=== PATIENT | female | born 1945 | race Caucasian/White ===

== ENCOUNTER 2020-11-08 00:07 | Inpatient (IN) | payer MEDICARE, OTHER ==
[~2020-11-08] VITALS: Ht 162.6 cm; Wt 67.5 kg
[2020-11-08 03:21] LABS: Eosinophils # (auto) 0.1 10 ^3/uL (0-0.8); Lymphocytes # (auto) 2.2 10 ^3/uL (0.4-5.4); Red Cell Distribution Width 14.4 % (11.8-14.3)
[2020-11-08 03:23] LABS: Basophils # (auto) 0.2 10 ^3/uL (0-0.2); Basophils % (auto) 1.8 % (0.0-2.0); Eosinophils % (auto) 1.1 % (0.0-7.0); Hematocrit 37.4 % (36.0-46.0); Lymphocytes % (auto) 20.8 % (10.0-50.0); Mean Corpuscular Hemoglobin 35.6 pg (28.0-32.0); Mean Corpuscular Hgb Conc. 34.8 g/dL (32.0-36.0); Mean Corpuscular Volume 102.2 fL (80.0-100.0); Monocytes # (auto) 0.5 10 ^3/uL (0-1.3); Monocytes % (auto) 4.7 % (0.0-12.0); Neutrophils # (auto) 7.5 10 ^3/uL (1.6-8.6); Neutrophils % (auto) 71.6 % (37.0-80.0); Platelet Count (auto) 175 10^3/uL (140-450); Red Blood Cells 3.66 10^6/uL (4.0-5.20); White Blood Cell 10.5 10^3/uL (4.4-10.8)
[2020-11-08 03:25] LABS: INR 0.91 (0.9-1.15)
[2020-11-08 03:27] LABS: Alanine Aminotransferase 40 U/L (13-56); Albumin 3.7 g/dL (3.4-5.0); Anion Gap 7 (5-15); Aspartate Aminotransferase 31 U/L (15-37); BUN/Creatinine Ratio 27.4; Blood Urea Nitrogen 29 mg/dL (7-18); Calcium 9.6 mg/dL (8.5-10.1); Carbon Dioxide 28 mmol/L (21-32); Chloride 100 mmol/L (98-107); GFR African American 65 mL/min; GFR Non-African American 54 mL/min; Glucose 262 mg/dL (74-106); Magnesium 2.2 mg/dL (1.6-2.6); Sodium 135 mmol/L (136-145)
[2020-11-08 03:32] LABS: Alkaline Phosphatase 90 U/L (45-117); Bilirubin, Total 0.5 mg/dL (0.2-1.0)
[2020-11-08] MEDS ORDERED: SODIUM CHLORIDE 0.9% 500 ML IV ONE (04:30)
[2020-11-08] MEDS ORDERED: ACETAMINOPHEN 325 MG TAB PO PRN (07:00)
[2020-11-08] MEDS ORDERED: NITROGLYCERIN 0.4 MG SL TAB SL PRN (07:00)
[2020-11-08] MEDS ORDERED: DEXTROSE (50%) 50ML SYRG IV PRN (07:00)
[2020-11-08] MEDS ORDERED: MORPHINE SULF INJ 2 MG/ML SYRINGE 1ML IV PRN (07:00)
[2020-11-08] MEDS ORDERED: TEMAZEPAM 15 MG CAP PO PRN (07:00)
[2020-11-08 07:52] LABS: Alcohol, Urine < 3.0 mg/dL (0-10); Amphetamine Screen, Urine NEGATIVE (NEGATIVE); Barbiturate Scree,Urine NEGATIVE (NEGATIVE); Benzodiazephine Screen, Urine NEGATIVE (NEGATIVE); Cannabinoid Screen, Urine NEGATIVE (NEGATIVE); Cocaine Screen, Urine NEGATIVE (NEGATIVE); Opiate Scree,Urine NEGATIVE (NEGATIVE); Phencyclidine Screen, Urine NEGATIVE (NEGATIVE)
[2020-11-08] MEDS ORDERED: cefTRIAXone 1GM/50ML D5W 50 ML IV SCH (09:00)
[2020-11-08] MEDS: InsuLIN REG 1unit/0.01ml Soln (100units/ml) SC SCH ×3 (09:40→21:17)
[2020-11-08] MEDS: ACCU-CHEK COMFORT CURVE STRIP VI SCH ×3 (09:41→21:15)
[2020-11-08] MEDS ORDERED: TRIAMTERENE/HCTZ 37.5/25 MG CAP/TAB PO SCH (10:00)
[2020-11-08] MEDS: PANTOPRAZOLE 40 MG TAB PO SCH (10:08)
[2020-11-08 10:38] LABS: Urine Bacteria FEW /hpf (None Seen); Urine Blood Negative /uL (Negative); Urine WBC 2 /hpf (0 - 5)
[2020-11-08 16:42] VITALS: BP 101/63
[2020-11-08 17:03] VITALS: BP 104/63
[2020-11-08] MEDS ORDERED: METF-370 PO (17:23)
[2020-11-08] MEDS ORDERED: GLIM4TAB42 PO (17:23)
[2020-11-08] MEDS ORDERED: TOFA1TAB PO (17:23)
[2020-11-08] MEDS ORDERED: OMEP20TA PO (17:23)
[2020-11-08] MEDS ORDERED: LISI40TA11 PO (17:23)
[2020-11-08] MEDS ORDERED: SOTA80TA PO (17:23)
[2020-11-08] MEDS ORDERED: CYCL10TA6 PO (17:23)
[2020-11-08] MEDS ORDERED: GABA300C10 PO (17:23)
[2020-11-08] MEDS ORDERED: ATO40T PO (17:23)
[2020-11-08] MEDS ORDERED: ASCO500T11 PO (17:23)
[2020-11-08] MEDS ORDERED: SITA100T7 PO (17:23)
[2020-11-08] MEDS ORDERED: MAGN400T40 PO (17:23)
[2020-11-08] MEDS ORDERED: CHOL20007 PO (17:23)
[2020-11-08] MEDS: ATORVASTATIN 20 MG TAB PO SCH (21:15)
[2020-11-08] MEDS: SODIUM CHLORIDE 0.9% 1,000 ML IV SCH (21:16)
[2020-11-08 22:00] VITALS: BP 131/75
[2020-11-09 05:00] VITALS: BP 139/84
[2020-11-09] MEDS: ACCU-CHEK COMFORT CURVE STRIP VI SCH ×4 (06:12→21:36)
[2020-11-09] MEDS: InsuLIN REG 1unit/0.01ml Soln (100units/ml) SC SCH ×4 (06:12→21:51)
[2020-11-09 07:38] LABS: Basophils # (auto) 0 10 ^3/uL (0-0.2); Basophils % (auto) 0.5 % (0.0-2.0); Eosinophils # (auto) 0.1 10 ^3/uL (0-0.8); Hemoglobin 13.1 g/dL (12.2-16.2); Monocytes # (auto) 0.5 10 ^3/uL (0-1.3); Monocytes % (auto) 6.2 % (0.0-12.0); Nucleated Red Blood Cells % 0.1 %; Platelet Count (auto) 148 10^3/uL (140-450); Red Cell Distribution Width 13.9 % (11.8-14.3)
[2020-11-09 07:40] LABS: Eosinophils % (auto) 0.9 % (0.0-7.0); Hematocrit 37.4 % (36.0-46.0); Lymphocytes # (auto) 1.4 10 ^3/uL (0.4-5.4); Lymphocytes % (auto) 18.5 % (10.0-50.0); Mean Corpuscular Hemoglobin 35.5 pg (28.0-32.0); Mean Corpuscular Volume 101.6 fL (80.0-100.0); Neutrophils # (auto) 5.6 10 ^3/uL (1.6-8.6); Neutrophils % (auto) 73.9 % (37.0-80.0); Red Blood Cells 3.68 10^6/uL (4.0-5.20); White Blood Cell 7.6 10^3/uL (4.4-10.8)
[2020-11-09 07:59] LABS: Calcium 9.3 mg/dL (8.5-10.1); Potassium 3.9 mmol/L (3.5-5.1)
[2020-11-09 08:02] LABS: BUN/Creatinine Ratio 23.4
[2020-11-09 08:13] LABS: Folate (Folic Acid) 14.02 ng/mL (5.38-24)
[2020-11-09 09:00] VITALS: BP 140/91
[2020-11-09] MEDS: PANTOPRAZOLE 40 MG TAB PO SCH (10:00)
[2020-11-09] MEDS: ASPirin-EC 81 mg tab PO SCH (10:00)
[2020-11-09] MEDS: SODIUM CHLORIDE 0.9% 1,000 ML IV SCH ×2 (10:04→12:52)
[2020-11-09] MEDS ORDERED: CHOLECALCIFEROL (VITD3) 2,000 UNIT CAP/TAB PO ONE (11:30)
[2020-11-09 13:00] VITALS: BP 145/81
[2020-11-09 17:00] VITALS: BP 141/89
[2020-11-09] MEDS: ATORVASTATIN 20 MG TAB PO SCH (21:51)
[2020-11-09 22:00] VITALS: BP 144/93
[2020-11-09] MEDS ORDERED: INSULIN LANTUS (GLARGINE) 1 /0.01ml (100units/ml) SC SCH (22:00)
[2020-11-10 05:00] VITALS: BP 120/71
[2020-11-10] MEDS: ACCU-CHEK COMFORT CURVE STRIP VI SCH ×3 (06:17→16:40)
[2020-11-10] MEDS: InsuLIN REG 1unit/0.01ml Soln (100units/ml) SC SCH ×3 (06:18→16:39)
[2020-11-10 07:07] LABS: Potassium 3.8 mmol/L (3.5-5.1)
[2020-11-10 07:10] LABS: Magnesium 1.8 mg/dL (1.6-2.6)
[2020-11-10] MEDS: SODIUM CHLORIDE 0.9% 1,000 ML IV SCH (07:15)
[2020-11-10] MEDS: PANTOPRAZOLE 40 MG TAB PO SCH (09:58)
[2020-11-10] MEDS ORDERED: CHOLECALCIFEROL (VITD3) 2,000 UNIT CAP/TAB PO SCH (10:00)
[2020-11-10] MEDS: ASPirin-EC 81 mg tab PO SCH (10:11)
[2020-11-10] MEDS ORDERED: MAGNESIUM SULFATE 1GM/100ML 100 ML IV ONE (12:45)
[2020-11-10] MEDS ORDERED: POTASSIUM CHL 20 Meq TABLET PO ONE (12:45)
[2020-11-10] MEDS ORDERED: MAGNESIUM OXIDE 400 MG TAB PO ONE (14:45)
[2020-11-10] MEDS ORDERED: CLOP75TA28 PO (15:28)
[2020-11-10] MEDS ORDERED: LISI20TA28 PO (15:28)
[2020-11-10 16:54] VITALS: BP 127/82
[2020-11-10 17:17] VITALS: BP 104/63
[2020-11-10] MEDS ORDERED: ATORVASTATIN 20 MG TAB PO SCH (22:00)
[2020-11-11] MEDS ORDERED: LISINOPRIL 20 MG TAB PO SCH (10:00)
== END 2020-11-10 18:50 | disposition home health service (06) | DRG 73 ==
LOC: EDSEX 00:07 → EDBD 00:07 → ER 00:11 → TELE 06:49 → TELE-CENTR 15:42
PROVIDERS: ADMIT Nurse Practitioner; ATTEND Internal Medicine
DX: E11.43 Type 2 diabetes mellitus with diabetic autonomic (poly)neuropathy (principal); G93.41 Metabolic encephalopathy; N17.0 Acute kidney failure with tubular necrosis; W01.0XXA Fall on same level from slipping, tripping and stumbling without subsequent striking against object, initial encounter; N18.9 Chronic kidney disease, unspecified; E11.22 Type 2 diabetes mellitus with diabetic chronic kidney disease; I65.22 Occlusion and stenosis of left carotid artery; E55.9 Vitamin D deficiency, unspecified; E78.5 Hyperlipidemia, unspecified; Z20.822 Contact with and (suspected) exposure to COVID-19; F17.200 Nicotine dependence, unspecified, uncomplicated; E11.21 Type 2 diabetes mellitus with diabetic nephropathy; E11.59 Type 2 diabetes mellitus with other circulatory complications; Z79.82 Long term (current) use of aspirin; Z79.899 Other long term (current) drug therapy; Z82.49 Family history of ischemic heart disease and other diseases of the circulatory system; Z83.3 Family history of diabetes mellitus; Z95.0 Presence of cardiac pacemaker; Y93.89 Activity, other specified; Y92.89 Other specified places as the place of occurrence of the external cause; Y99.8 Other external cause status; I11.0 Hypertensive heart disease with heart failure
CPT/HCPCS: 36415; 36600; 70450; 71045; 80048; 80053; 80061; 80307; 80320; 81001; 82306; 82607; 82746; 82805; 82962; 83036; 83605; 83735; 83880; 84132; 84443; 84484; 85025; 85610; 87086; 87426; 93005; 93306; 93886; 96361; 96365; 97110; 97116; 97530; G0378; J0696; J1815

== ENCOUNTER 2021-02-15 09:27 | Day surgery (SDC) | payer MEDICARE, OTHER ==
[~2021-02-15] VITALS: Ht 162.6 cm; Wt 70.3 kg
[~2021-02-15 09:27] MED LIST: APIX5TAB PO; ASCO500T11 PO; ATO40T PO; CHOL20007 PO; GABA300C10 PO; GLIM4TAB42 PO; LISI40TA11 PO; MAGN400T40 PO; METF-370 PO; OMEP20TA PO; SITA100T7 PO; TOFA1TAB PO
[2021-02-15] MEDS ORDERED: LIDOCAINE 2%HCL (LOCAL ANESTH.) INJ 20ML MDV ONE (11:29)
[2021-02-15] MEDS ORDERED: IOHEXOL 350 MG/ML 100ML IJ ONE (11:29)
[2021-02-15] MEDS ORDERED: PHENYLEPHRINE HCL 10 MG/ML VL ONE (12:02)
[2021-02-15] MEDS ORDERED: SODIUM CHL 0.9% 50 ML ONE (12:02)
[2021-02-15] MEDS ORDERED: ANGIOMAX 250 MG VIAL IV ONE (12:02)
[2021-02-15] MEDS ORDERED: GLYCOPYRROLATE 0.2 MG/ML 1ML VIAL ONE (12:02)
[2021-02-15] MEDS ORDERED: CLOPIDOGREL 300 MG TAB ONE (12:37)
[2021-02-15] MEDS ORDERED: APIXABAN 2.5 MG TAB PO SCH (22:00)
== END 2021-02-15 14:59 | disposition home or self-care (01) ==
LOC: CATH 09:27
PROVIDERS: ATTEND Internal Medicine Cardiovascular Disease
DX: I65.29 Occlusion and stenosis of unspecified carotid artery (principal); I10 Essential (primary) hypertension; E78.5 Hyperlipidemia, unspecified; E11.40 Type 2 diabetes mellitus with diabetic neuropathy, unspecified; Z98.890 Other specified postprocedural states; Z20.822 Contact with and (suspected) exposure to COVID-19; Z87.891 Personal history of nicotine dependence; Z79.899 Other long term (current) drug therapy; Z86.73 Personal history of transient ischemic attack (TIA), and cerebral infarction without residual deficits
CPT/HCPCS: 37215; C1725; C1760; C1769; C1876; C1887; C1894; J0583; J1644; Q9967; U0003; 99152; 99153

== ENCOUNTER → 2021-06-20 | Outpatient (CLI) | payer MEDICARE, OTHER | END | disposition home or self-care (01) | LOC: Rad HDHVI 13:14 | PROVIDERS: ATTEND Internal Medicine Cardiovascular Disease | DX: I65.23 Occlusion and stenosis of bilateral carotid arteries (principal) | CPT/HCPCS: 93880 ==

== ENCOUNTER → 2021-07-11 | Outpatient (CLI) | payer MEDICARE, OTHER ==
[2021-07-11 15:22] LABS: BUN/Creatinine Ratio 18.3; Potassium 4.2 mmol/L (3.5-5.1)
[2021-07-11 15:24] LABS: Basophils # (auto) 0.1 10 ^3/uL (0-0.2); Basophils % (auto) 1.4 % (0.0-2.0); Eosinophils # (auto) 0.1 10 ^3/uL (0-0.8); Eosinophils % (auto) 1.7 % (0.0-7.0); Hematocrit 37.6 % (36.0-46.0); Hemoglobin 12.8 g/dL (12.2-16.2); Lymphocytes # (auto) 1.7 10 ^3/uL (0.4-5.4); Lymphocytes % (auto) 28.8 % (10.0-50.0); Mean Corpuscular Hemoglobin 31.5 pg (28.0-32.0); Mean Corpuscular Volume 92.7 fL (80.0-100.0); Monocytes # (auto) 0.5 10 ^3/uL (0-1.3); Neutrophils # (auto) 3.5 10 ^3/uL (1.6-8.6); Neutrophils % (auto) 60.1 % (37.0-80.0); Nucleated Red Blood Cells % 0.2 %; Red Blood Cells 4.05 10^6/uL (4.0-5.20); Red Cell Distribution Width 14.4 % (11.8-14.3); White Blood Cell 5.9 10^3/uL (4.4-10.8)
== END | disposition home or self-care (01) ==
LOC: LAB 13:30
PROVIDERS: ATTEND Internal Medicine Cardiovascular Disease
DX: D64.9 Anemia, unspecified (principal)
CPT/HCPCS: 36415; 80048; 85025

== ENCOUNTER → 2021-07-17 | Outpatient (CLI) | payer MEDICARE, OTHER ==
[2021-07-17 15:20] LABS: Urine Blood Negative /uL (Negative); Urine Specific Gravity 1.017 (1.001-1.035)
== END | disposition home or self-care (01) ==
LOC: LAB 11:56
PROVIDERS: ATTEND Internal Medicine Cardiovascular Disease
DX: N39.0 Urinary tract infection, site not specified (principal)
CPT/HCPCS: 81003; 87086